=== PATIENT | male | born 1955 | race Caucasian/White ===

== ENCOUNTER 2022-07-31 06:41 | Day surgery (SDC) | payer OTHER ==
[~2022-07-31] VITALS: Ht 162.6 cm; Wt 74.8 kg
[2022-07-31] MEDS ORDERED: fentaNYL CITRATE/PF 100 MCG/2 ML AMP ONE (06:51)
[2022-07-31] MEDS ORDERED: MIDAZOLAM HCL 5 MG/5 ML VIAL ONE (06:51)
[2022-07-31 11:46] VITALS: BP_SYST 158
== END 2022-07-31 10:50 | disposition home or self-care (01) ==
LOC: SMU 06:41 → SDS 06:41
PROVIDERS: ATTEND Internal Medicine Gastroenterology
DX: K74.60 Unspecified cirrhosis of liver (principal); K31.7 Polyp of stomach and duodenum; I12.0 Hypertensive chronic kidney disease with stage 5 chronic kidney disease or end stage renal disease; E11.22 Type 2 diabetes mellitus with diabetic chronic kidney disease; N18.6 End stage renal disease; M19.90 Unspecified osteoarthritis, unspecified site; Z86.010 Personal history of colon polyps; Z79.899 Other long term (current) drug therapy
CPT/HCPCS: 43251; 82962; 88305; 88312; 88313; 99152; 99153; G0378; J2250; J3010; 43239; 43255